=== PATIENT | female | born 1955 | race American Indian/Alaskan Native ===

== ENCOUNTER 2019-04-12 13:01 | Emergency (ER) | payer OTHER ==
[~2019-04-12] VITALS: Ht 149.9 cm; Wt 50.0 kg
[~2019-04-12 13:01] MED LIST: ALBU6.7H9 INH; ALPR0.5T10 PO; ESTR2TAB25 PO; LORA10TA7 PO; TRAZ-251 PO; ZOLP10TA PO
[2019-04-12] MEDS ORDERED: ipratropium/albuterol 3ml nebule NEB ONE (13:35)
[2019-04-12 13:43] LABS: BASOPHILS # (AUTO) 0.1 X10'3 (0-0.2); BASOPHILS % (AUTO) 0.9 % (0-1); EOSINOPHILS # (AUTO) 0.3 X10'3 (0-0.9); EOSINOPHILS % (AUTO) 4.2 % (0-6); HEMATOCRIT 44.1 % (35.0-45.0); HEMOGLOBIN 15.5 g/dl (12.0-16.0); LYMPHOCYTES # (AUTO) 2.7 X10'3 (1.1-4.8); LYMPHOCYTES % (AUTO) 32.3 % (21-51); MEAN CORPUSCULAR HEMOGLOBIN 33.3 PG (27.0-31.0); MEAN CORPUSCULAR HGB CONC 35.1 g/dL (33.0-36.5); MEAN CORPUSCULAR VOLUME 94.8 FL (78-98); MEAN PLATELET VOLUME 8.7 FL (7.4-10.4); MONOCYTES # (AUTO) 0.9 X10'3 (0-0.9); MONOCYTES % (AUTO) 11.2 % (2-12); NEUTROPHILS # (AUTO) 4.2 X10'3 (1.8-7.7); NEUTROPHILS % (AUTO) 51.4 % (42-75); PLATELET COUNT 199 X10'3 (140-440); RED BLOOD COUNT 4.65 X10'6 (4.20-5.60); RED CELL DISTRIBUTION WIDTH 13.1 % (11.5-14.5); WHITE BLOOD COUNT 8.3 X10'3 (4.5-11.0)
[2019-04-12 13:57] LABS: PARTIAL THROMBOPLASTIN TIME 28 SECONDS (22-32)
[2019-04-12 13:59] LABS: ALANINE AMINOTRANSFERASE 26 U/L (12-78); ALBUMIN 3.9 G/DL (3.4-5.0); ALKALINE PHOSPHATASE 101 IU/L (46-116); ANION GAP 6 (8-16); ASPARTATE AMINO TRANSFERASE 28 U/L (10-37); BILIRUBIN,TOTAL 0.5 MG/DL (0.1-1.0); BLOOD UREA NITROGEN 10 MG/DL (7-18); CALCIUM 9.4 MG/DL (8.5-10.1); CHLORIDE 103 MMOL/L (99-107); CREATININE 0.77 MG/DL (0.40-0.90); GLUCOSE 93 MG/DL (70-104); POTASSIUM 3.6 MMOL/L (3.5-5.1); SODIUM 138 MMOL/L (135-145); TOTAL CARBON DIOXIDE 29.5 MMOL/L (24-32); eGFR 75 ML/MIN
[2019-04-12 14:06] LABS: TROPONIN I < 0.04 NG/ML (0.0-0.05)
[2019-04-12] MEDS ORDERED: PRED20TA PO (14:49)
[2019-04-12] MEDS ORDERED: predniSONE 20 mg tablet PO ONE (14:50)
[2019-04-12] MEDS ORDERED: ALBU8HFA PO (14:55)
[2019-04-12 15:24] VITALS: BP 131/84
== END 2019-04-12 15:26 | disposition home or self-care (01) ==
LOC: ER 13:01
DX: J45.901 Unspecified asthma with (acute) exacerbation (principal); J06.9 Acute upper respiratory infection, unspecified; J44.9 Chronic obstructive pulmonary disease, unspecified; F41.9 Anxiety disorder, unspecified; F17.200 Nicotine dependence, unspecified, uncomplicated; Z79.899 Other long term (current) drug therapy
CPT/HCPCS: 36415; 71046; 80053; 83880; 84484; 85025; 85610; 85730; 93005; 94010; 94640; 94760; 99284; J7512

== ENCOUNTER 2019-08-29 04:28 | Emergency (ER) | payer MEDICARE, OTHER, MEDICAID ==
[~2019-08-29] VITALS: Ht 149.9 cm; Wt 49.8 kg
[~2019-08-29 04:28] MED LIST changes: +FLUT1DIS4 INH
[2019-08-29] MEDS ORDERED: ibuprofen 200mg tablet PO ONE (04:40)
[2019-08-29 05:05] LABS: BASOPHILS # (AUTO) 0.1 X10'3 (0-0.2); BASOPHILS % (AUTO) 0.8 % (0-1); EOSINOPHILS # (AUTO) 0.2 X10'3 (0-0.9); EOSINOPHILS % (AUTO) 1.7 % (0-6); HEMOGLOBIN 14.9 g/dl (12.0-16.0); LYMPHOCYTES # (AUTO) 2.5 X10'3 (1.1-4.8); LYMPHOCYTES % (AUTO) 18.2 % (21-51); MEAN CORPUSCULAR HEMOGLOBIN 32.6 PG (27.0-31.0); MEAN CORPUSCULAR HGB CONC 35.4 g/dL (33.0-36.5); MEAN CORPUSCULAR VOLUME 92.2 FL (78-98); MEAN PLATELET VOLUME 8.6 FL (7.4-10.4); MONOCYTES # (AUTO) 1.3 X10'3 (0-0.9); MONOCYTES % (AUTO) 9.2 % (2-12); NEUTROPHILS # (AUTO) 9.7 X10'3 (1.8-7.7); NEUTROPHILS % (AUTO) 70.1 % (42-75); PLATELET COUNT 242 X10'3 (140-440); RED BLOOD COUNT 4.56 X10'6 (4.20-5.60); WHITE BLOOD COUNT 13.8 X10'3 (4.5-11.0)
[2019-08-29 05:13] LABS: ALBUMIN 3.7 G/DL (3.4-5.0); ALBUMIN/GLOBULIN RATIO 0.9 (1.1-1.5); ALKALINE PHOSPHATASE 130 IU/L (46-116); ANION GAP 8 (8-16); ASPARTATE AMINO TRANSFERASE 28 U/L (10-37); BILIRUBIN,TOTAL 0.7 MG/DL (0.1-1.0); BLOOD UREA NITROGEN 11 MG/DL (7-18); BUN/CREATININE RATIO 14.3 (6.6-38.0); CALCIUM 8.7 MG/DL (8.5-10.1); CHLORIDE 101 MMOL/L (99-107); CREATININE 0.77 MG/DL (0.40-0.90); GLUCOSE 115 MG/DL (70-104); POTASSIUM 3.2 MMOL/L (3.5-5.1); SODIUM 137 MMOL/L (135-145); TOTAL CARBON DIOXIDE 27.6 MMOL/L (24-32); TOTAL PROTEIN 7.8 G/DL (6.4-8.2); eGFR 75 ML/MIN
[2019-08-29 05:16] LABS: ALANINE AMINOTRANSFERASE < 6 U/L (12-78)
[2019-08-29 05:34] VITALS: BP 111/75
== END 2019-08-29 05:35 | disposition home or self-care (01) ==
LOC: ER 04:29
DX: J44.1 Chronic obstructive pulmonary disease with (acute) exacerbation (principal); R07.89 Other chest pain; F41.9 Anxiety disorder, unspecified; F17.210 Nicotine dependence, cigarettes, uncomplicated; Z79.899 Other long term (current) drug therapy
CPT/HCPCS: 36415; 71045; 80053; 84484; 85025; 93005; 99285

== ENCOUNTER 2019-10-02 15:33 | Emergency (ER) | payer MEDICARE, OTHER, MEDICAID ==
[~2019-10-02] VITALS: Ht 149.9 cm; Wt 48.2 kg
[2019-10-02 16:02] VITALS: BP 124/64
--- NOTE | 2019-10-02 18:06 | NUR ---
NOT IN LOBBY X3
== END 2019-10-02 18:07 | disposition left against medical advice (07) ==
LOC: ER 15:33
DX: R07.89 Other chest pain (principal); Z53.21 Procedure and treatment not carried out due to patient leaving prior to being seen by health care provider
CPT/HCPCS: 71046

== ENCOUNTER 2021-11-02 15:38 | Inpatient (IN) | payer MEDICARE, OTHER, MEDICAID ==
[~2021-11-02] VITALS: Ht 144.8 cm; Wt 50.0 kg
[2021-11-02 17:31] LABS: BASOPHILS # (AUTO) 0.1 X10'3 (0-0.2); BASOPHILS % (AUTO) 1.2 % (0-1); EOSINOPHILS # (AUTO) 1.2 X10'3 (0-0.9); EOSINOPHILS % (AUTO) 11.9 % (0-6); HEMATOCRIT 43.5 % (35.0-45.0); HEMOGLOBIN 15.4 g/dl (12.0-16.0); LYMPHOCYTES # (AUTO) 2.9 X10'3 (1.1-4.8); LYMPHOCYTES % (AUTO) 28.4 % (21-51); MEAN CORPUSCULAR HEMOGLOBIN 32.4 PG (27.0-31.0); MEAN CORPUSCULAR HGB CONC 35.5 g/dL (33.0-36.5); MEAN CORPUSCULAR VOLUME 91.4 FL (78-98); MEAN PLATELET VOLUME 8.8 FL (7.4-10.4); MONOCYTES # (AUTO) 0.8 X10'3 (0-0.9); MONOCYTES % (AUTO) 8.1 % (2-12); NEUTROPHILS # (AUTO) 5.1 X10'3 (1.8-7.7); NEUTROPHILS % (AUTO) 50.4 % (42-75); PLATELET COUNT 323 X10'3 (140-440); RED BLOOD COUNT 4.76 X10'6 (4.20-5.60); RED CELL DISTRIBUTION WIDTH 13.4 % (11.5-14.5); WHITE BLOOD COUNT 10.1 X10'3 (4.5-11.0)
[2021-11-02 17:39] LABS: ALANINE AMINOTRANSFERASE 24 U/L (12-78); ALBUMIN 3.9 G/DL (3.4-5.0); ALKALINE PHOSPHATASE 94 IU/L (46-116); ANION GAP 9 (8-16); ASPARTATE AMINO TRANSFERASE 21 U/L (10-37); BILIRUBIN,TOTAL 0.6 MG/DL (0.1-1.0); BLOOD UREA NITROGEN 12 MG/DL (7-18); BUN/CREATININE RATIO 12.5 (6.6-38.0); CALCIUM 8.8 MG/DL (8.5-10.1); CHLORIDE 104 MMOL/L (99-107); CREATININE 0.96 MG/DL (0.40-0.90); GLUCOSE 93 MG/DL (70-104); POTASSIUM 4.1 MMOL/L (3.5-5.1); SODIUM 140 MMOL/L (135-145); TOTAL CARBON DIOXIDE 26.7 MMOL/L (24-32); eGFR 58 ML/MIN
[2021-11-02] MEDS ORDERED: albuterol 2.5 MG/3 ML nebule NEB ONE (19:00)
[2021-11-02] MEDS ORDERED: ipratropium 0.5 MG/2.5ML nebule IH ONE (19:00)
[2021-11-02] MEDS ORDERED: albuterol 2.5 MG/3 ML nebule CONTNEB PRN ×2 (19:10→23:20)
[2021-11-02] MEDS ORDERED: predniSONE 20 mg tablet PO ONE (19:10)
[2021-11-02] MEDS: ipratropium/albuterol 3ml nebule NEB PRN (19:14)
[2021-11-02] MEDS ORDERED: ipratropium/albuterol 3ml nebule ONE (19:20)
[2021-11-03] MEDS ORDERED: acetaminophen 325mg tablet PO PRN ×2 (02:05)
[2021-11-03] MEDS ORDERED: mag hydrox/Alum hydrox/simeth 30ml oral suspension PO PRN (02:05)
[2021-11-03] MEDS ORDERED: magnesium hydroxide 30ml (MOM) UD suspension PO PRN (02:05)
[2021-11-03] MEDS: normal saline 1000ml 1,000 ML IV SCH (02:05)
[2021-11-03] MEDS ORDERED: bisacodyl 10mg suppository rectal RC PRN (02:05)
[2021-11-03] MEDS ORDERED: ondansetron/PF 4mg/2ml inj IV PRN (02:05)
[2021-11-03] MEDS ORDERED: diphenhydrAMINE 50 mg/ml inj IV PRN (02:05)
[2021-11-03] MEDS ORDERED: HYDROcodone/acetaminophen 5mg/325mg tablet PO PRN (02:05)
[2021-11-03] MEDS ORDERED: diphenhydrAMINE 25mg capsule PO PRN (02:05)
[2021-11-03] MEDS ORDERED: acetaminophen 650mg rectal suppository RC PRN (02:05)
[2021-11-03] MEDS ORDERED: ondansetron 4mg rapidly disintigrating tab PO PRN (02:05)
[2021-11-03] MEDS ORDERED: morphine 2 MG/ML inj. syringe IV PRN ×2 (02:05)
[2021-11-03] MEDS ORDERED: ipratropium/albuterol 3ml nebule NEB PRN (02:05)
[2021-11-03 02:42] LABS: HEMOGLOBIN A1C 5.5 % (4.5-6.2)
[2021-11-03 02:47] LABS: MAGNESIUM 2.2 MG/DL (1.5-2.4); PHOSPHORUS 5.8 MG/DL (2.3-4.5)
[2021-11-03] MEDS ORDERED: azithromycin/NS 500mg/250ml 250 ML IV SCH (04:00)
[2021-11-03] MEDS ORDERED: LEVO25TA7 (05:17)
[2021-11-03] MEDS ORDERED: ALPR-163 PO (05:17)
[2021-11-03] MEDS ORDERED: BENZ-49 (05:17)
[2021-11-03] MEDS ORDERED: ADV50250 INH (05:17)
[2021-11-03] MEDS ORDERED: ATRIN INH (05:17)
[2021-11-03] MEDS ORDERED: IPRA3AMP31 NEB (05:17)
[2021-11-03] MEDS ORDERED: MONT-40 PO (05:17)
[2021-11-03] MEDS ORDERED: CHOL20003 (05:17)
[2021-11-03] MEDS ORDERED: ALBU8HFA PO (05:17)
[2021-11-03] MEDS: cefTRIAXone 1g/NS 100ml IVPB 100 ML IV SCH (05:27)
[2021-11-03] MEDS ORDERED: ALPRAZolam 0.5mg tablet PO PRN (07:25)
[2021-11-03] MEDS ORDERED: methylPREDNISolone sod succ 125mg/2ml vial IV SCH (08:00)
[2021-11-03 08:36] LABS: APTT 33 SECONDS (22-32)
[2021-11-03] MEDS: loratadine 10mg tablet PO SCH (08:42)
[2021-11-03] MEDS: montelukast 10mg tablet PO SCH (08:42)
[2021-11-03] MEDS: benzonatate 100mg capsule PO SCH ×3 (08:42→20:42)
[2021-11-03] MEDS: levoTHYROXINE 25mcg tablet PO SCH (08:42)
[2021-11-03] MEDS: cholecalciferol (vitamin D3) 1,000 unit (25mcg) tablet PO SCH (08:42)
[2021-11-03] MEDS: pantoprazole 40mg Tablet.DR PO SCH (08:42)
[2021-11-03] MEDS: heparin, porcine 5000 units/ml vial SQ SCH ×2 (08:43→20:43)
[2021-11-03] MEDS: docusate sod 100mg capsule PO SCH ×2 (08:43→20:42)
[2021-11-03] MEDS: estradiol 1mg tablet PO SCH (08:45)
--- NOTE | 2021-11-03 10:56 | NUR ---
PT IS REQUESTING A BREATHING TX, PT HAS AUDIBLE WHEEZES. RT PAGED
[2021-11-03] MEDS: ipratropium/albuterol 3ml nebule NEB PRN (11:21)
--- NOTE | 2021-11-03 13:03 | NUR ---
02 titrated down to 1 ltr. spo2 95%
[2021-11-03] MEDS ORDERED: ipratropium/albuterol 3ml nebule NEB SCH (15:05)
[2021-11-03] MEDS ORDERED: iohexol 350MG/ML 100ml bottle IV ONE (15:13)
[2021-11-03 15:25] VITALS: BP 141/74
--- NOTE | 2021-11-03 15:30 | NUR ---
Pt taken to CT
[2021-11-03 18:00] VITALS: BP 146/77
--- NOTE | 2021-11-03 18:57 | NUR ---
Pt has been able to make her needs be known thoughout shift. Call light within reach at all times. [facility] shift nurseNeris NOC nurse to resume care of patient. All questions, comments, concerns answered at this time.
[2021-11-03] MEDS: budesonide 0.5mg/2ml UD nebule IH SCH (19:48)
[2021-11-03] MEDS: ipratropium/albuterol 3ml nebule NEB SCH (21:00)
[2021-11-03] MEDS ORDERED: temazepam 15mg capsule PO PRN (21:00)
[2021-11-03] MEDS: methylPREDNISolone sod succ 125mg/2ml vial IV SCH (21:02)
[2021-11-03 22:00] VITALS: BP 124/61
[2021-11-04 02:00] VITALS: BP 117/57
[2021-11-04] MEDS: normal saline 1000ml 1,000 ML IV SCH (03:08)
--- NOTE | 2021-11-04 03:37 | NUR ---
HAVE REVIEWED ASSMT DONE BY ASHLY LONG LVN AND AGREE WITH PATIENTS ASSMT.
--- NOTE | 2021-11-04 06:38 | NUR ---
Problems reprioritized. Patient report given, questions answered & plan of care reviewed with matthew vang.
[2021-11-04 07:01] LABS: BASOPHILS % (AUTO) 0.1 % (0-1); EOSINOPHILS % (AUTO) 0 % (0-6); HEMATOCRIT 38.8 % (35.0-45.0); LYMPHOCYTES # (AUTO) 1.1 X10'3 (1.1-4.8); LYMPHOCYTES % (AUTO) 5.6 % (21-51); MEAN CORPUSCULAR HEMOGLOBIN 30.7 PG (27.0-31.0); MEAN CORPUSCULAR HGB CONC 33.6 g/dL (33.0-36.5); MEAN CORPUSCULAR VOLUME 91.5 FL (78-98); MEAN PLATELET VOLUME 9.5 FL (7.4-10.4); MONOCYTES # (AUTO) 0.3 X10'3 (0-0.9); MONOCYTES % (AUTO) 1.8 % (2-12); NEUTROPHILS # (AUTO) 17.6 X10'3 (1.8-7.7); NEUTROPHILS % (AUTO) 92.5 % (42-75); PLATELET COUNT 279 X10'3 (140-440); RED BLOOD COUNT 4.24 X10'6 (4.20-5.60); RED CELL DISTRIBUTION WIDTH 13.7 % (11.5-14.5); WHITE BLOOD COUNT 19.1 X10'3 (4.5-11.0)
[2021-11-04 07:22] LABS: ALANINE AMINOTRANSFERASE 22 U/L (12-78); ALBUMIN 3.5 G/DL (3.4-5.0); ALKALINE PHOSPHATASE 73 IU/L (46-116); ANION GAP 8 (8-16); ASPARTATE AMINO TRANSFERASE 25 U/L (10-37); BILIRUBIN,TOTAL 0.4 MG/DL (0.1-1.0); BLOOD UREA NITROGEN 14 MG/DL (7-18); BUN/CREATININE RATIO 17.7 (6.6-38.0); CALCIUM 8.8 MG/DL (8.5-10.1); CHLORIDE 108 MMOL/L (99-107); CHOL/HDL RATIO 2.3 (0.00-4.99); CHOLESTEROL 191 MG/DL (0-200); CREATININE 0.79 MG/DL (0.40-0.90); GLUCOSE 149 MG/DL (70-104); HDL CHOLESTEROL 83 MG/DL (35-60); LDL CHOLESTEROL 84 MG/DL (50-100); POTASSIUM 4.1 MMOL/L (3.5-5.1); SODIUM 143 MMOL/L (135-145); TOTAL CARBON DIOXIDE 26.8 MMOL/L (24-32); TRIGLYCERIDES 80 MG/DL (20-135); eGFR 73 ML/MIN
[2021-11-04] MEDS: heparin, porcine 5000 units/ml vial SQ SCH (08:00)
[2021-11-04] MEDS: methylPREDNISolone sod succ 125mg/2ml vial IV SCH (08:00)
[2021-11-04] MEDS: benzonatate 100mg capsule PO SCH (08:00)
--- NOTE | 2021-11-04 08:14 | NUR ---
PAGER ID: [phone] MESSAGE: Isac mcmahon [id number] has a BG of [phone] FYI will treat per protocol unless otherwise prescribed. Sanjuana CHANG ext [phone] Addendum: 11/04/21 at 0815 by Sanjuana Donaldson RN Entered note on wrong patient will add to correct patients chart
[2021-11-04] MEDS: ipratropium/albuterol 3ml nebule NEB SCH (09:34)
[2021-11-04] MEDS: budesonide 0.5mg/2ml UD nebule IH SCH (09:34)
[2021-11-04] MEDS: cefTRIAXone 1g/NS 100ml IVPB 100 ML IV SCH (09:39)
[2021-11-04] MEDS: docusate sod 100mg capsule PO SCH (09:39)
[2021-11-04] MEDS: estradiol 1mg tablet PO SCH (09:39)
[2021-11-04] MEDS: loratadine 10mg tablet PO SCH (09:40)
[2021-11-04] MEDS: cholecalciferol (vitamin D3) 1,000 unit (25mcg) tablet PO SCH (09:40)
[2021-11-04] MEDS: pantoprazole 40mg Tablet.DR PO SCH (09:40)
[2021-11-04] MEDS: levoTHYROXINE 25mcg tablet PO SCH (09:40)
[2021-11-04] MEDS: montelukast 10mg tablet PO SCH (09:40)
[2021-11-04] MEDS ORDERED: AZIT500T9 PO (10:39)
[2021-11-04] MEDS ORDERED: PRED20TA PO (10:39)
--- NOTE | 2021-11-04 14:16 | NUR ---
IV removed went over discharge packet answered all questions. patient discharged
== END 2021-11-04 13:50 | disposition home or self-care (01) | DRG 189 ==
LOC: ER 15:39 → ED HOLD 23:50 → PCU 3S 11-03 15:09
PROVIDERS: ADMIT Family Medicine; ATTEND Family Medicine
PROC: B32T1ZZ Computerized Tomography (CT Scan) of Left Pulmonary Artery using Low Osmolar Contrast (ICD-10-PCS; principal; 2021-11-03)
PROC: B3201ZZ Computerized Tomography (CT Scan) of Thoracic Aorta using Low Osmolar Contrast (ICD-10-PCS; 2021-11-03)
PROC: B32S1ZZ Computerized Tomography (CT Scan) of Right Pulmonary Artery using Low Osmolar Contrast (ICD-10-PCS; 2021-11-03)
DX: J96.01 Acute respiratory failure with hypoxia (principal); J44.1 Chronic obstructive pulmonary disease with (acute) exacerbation; N17.9 Acute kidney failure, unspecified; N18.9 Chronic kidney disease, unspecified; R00.0 Tachycardia, unspecified; J40 Bronchitis, not specified as acute or chronic; F41.9 Anxiety disorder, unspecified; D72.823 Leukemoid reaction; T38.0X5A Adverse effect of glucocorticoids and synthetic analogues, initial encounter; Y92.230 Patient room in hospital as the place of occurrence of the external cause; Z79.51 Long term (current) use of inhaled steroids; Z87.891 Personal history of nicotine dependence; Z82.5 Family history of asthma and other chronic lower respiratory diseases; Z82.3 Family history of stroke; Z83.3 Family history of diabetes mellitus; Z84.89 Family history of other specified conditions; Z79.899 Other long term (current) drug therapy
CPT/HCPCS: 36415; 71045; 71275; 80053; 80061; 83036; 83735; 83880; 84100; 84484; 85025; 85610; 85730; 87081; 92508; 92616; 93005; 94640; 94667; 94668; 94760; 97116; 97161; 97530; 99291; A7015; G0378; J0456; J0696; J1644; J2930; J3490; J7030; J7512; Q9967

== ENCOUNTER 2023-04-15 01:31 | Emergency (ER) | payer MEDICARE, OTHER, MEDICAID ==
[~2023-04-15] VITALS: Ht 149.9 cm; Wt 48.2 kg
[~2023-04-15 01:31] MED LIST changes: +ADV50250 PO; +ALBU18HF2 PO; -ALBU6.7H9 INH; +ALPR-163 PO; -ALPR0.5T10 PO; +ATRIN INH; +CHOL20003 PO; -FLUT1DIS4 INH; +IPRA3AMP31 NEB; +LEVO25TA7; +MONT-40 PO; -TRAZ-251 PO; -ZOLP10TA PO
--- NOTE | 2023-04-15 01:46 | NUR ---
PT REPORTS HEAT LEFT ARM WITH NUMBNESS
[2023-04-15] MEDS ORDERED: triamcinolone acetonide 40mg/ml inj IJ ONE (02:40)
[2023-04-15] MEDS ORDERED: BUPIVAcaine/PF 2.5mg/ml (0.25%) 10ml vial IJ ONE (02:50)
[2023-04-15] MEDS ORDERED: acetaminophen 325mg tablet PO ONE (04:10)
[2023-04-15] MEDS ORDERED: HYDR-3965 PO (04:19)
[2023-04-15 04:41] VITALS: BP 172/92; PULSE 69; RESP 16; TEMP 98.1; O2SAT 94
== END 2023-04-15 04:45 | disposition home or self-care (01) ==
LOC: ER 01:32
DX: M54.10 Radiculopathy, site unspecified (principal); M25.512 Pain in left shoulder
CPT/HCPCS: 20552; 71045; 93005; 99284

== ENCOUNTER 2023-07-21 09:03 | Emergency (ER) | payer MEDICARE, OTHER, MEDICAID ==
[~2023-07-21] VITALS: Ht 142.2 cm; Wt 47.0 kg
[~2023-07-21 09:03] MED LIST changes: -ALPR-163 PO; +LACT1CAP55 PO
[2023-07-21 10:24] LABS: BASOPHILS # (AUTO) 0.1 X10'3 (0-0.2); HEMOGLOBIN 15.9 g/dl (12.0-16.0); LYMPHOCYTES # (AUTO) 1.5 X10'3 (1.1-4.8); MEAN CORPUSCULAR HEMOGLOBIN 32.6 PG (27.0-31.0); MONOCYTES # (AUTO) 0.7 X10'3 (0-0.9); MONOCYTES % (AUTO) 8.1 % (2-12); WHITE BLOOD COUNT 8.6 X10'3 (4.5-11.0)
[2023-07-21 10:25] LABS: BASOPHILS % (AUTO) 1.3 % (0-1); EOSINOPHILS # (AUTO) 0.4 X10'3 (0-0.9); EOSINOPHILS % (AUTO) 4.8 % (0-6); HEMATOCRIT 46.2 % (35.0-45.0); LYMPHOCYTES % (AUTO) 17.2 % (21-51); MEAN CORPUSCULAR HGB CONC 34.5 g/dL (33.0-36.5); MEAN CORPUSCULAR VOLUME 94.5 FL (78-98); MEAN PLATELET VOLUME 9.1 FL (7.4-10.4); NEUTROPHILS # (AUTO) 5.9 X10'3 (1.8-7.7); NEUTROPHILS % (AUTO) 68.6 % (42-75); PLATELET COUNT 304 X10'3 (140-440); RED CELL DISTRIBUTION WIDTH 13.4 % (11.5-14.5)
[2023-07-21 10:36] LABS: ALANINE AMINOTRANSFERASE 20 U/L (12-78); ALBUMIN 4.3 G/DL (3.4-5.0); ALBUMIN/GLOBULIN RATIO 1.2 (1.1-1.5); ALKALINE PHOSPHATASE 103 IU/L (46-116); ANION GAP 10 (8-16); ASPARTATE AMINO TRANSFERASE 23 U/L (10-37); BILIRUBIN,TOTAL 0.9 MG/DL (0.1-1.0); BLOOD UREA NITROGEN 6 MG/DL (7-18); BUN/CREATININE RATIO 8.6 (10.0-20.0); CALCIUM 8.8 MG/DL (8.5-10.1); CHLORIDE 105 MMOL/L (99-107); GLUCOSE 102 MG/DL (70-104); POTASSIUM 3.8 MMOL/L (3.5-5.1); PRO BRAIN NATRIURETIC PEPTIDE 407 PG/ML (0-125); SODIUM 142 MMOL/L (135-145); TOTAL CARBON DIOXIDE 26.6 MMOL/L (24-32); eCRCL 43 ML/MIN; eGFR 83 ML/MIN
[2023-07-21] MEDS: ipratropium/albuterol 3ml nebule NEB ONE (10:50)
[2023-07-21 10:52] VITALS: PULSE 99; RESP 22; O2SAT 96
[2023-07-21 10:58] VITALS: PULSE 99; RESP 22; O2SAT 94
[2023-07-21] MEDS ORDERED: ALBU2.5V10 NEB (11:24)
[2023-07-21] MEDS ORDERED: PRED20TA PO (11:24)
[2023-07-21 12:02] VITALS: BP 113/84; PULSE 90; RESP 20; TEMP 97.6; O2SAT 90
== END 2023-07-21 12:05 | disposition home or self-care (01) ==
LOC: ER 09:03
DX: J44.1 Chronic obstructive pulmonary disease with (acute) exacerbation (principal); F41.9 Anxiety disorder, unspecified; Z90.710 Acquired absence of both cervix and uterus; Z72.89 Other problems related to lifestyle; Z88.8 Allergy status to other drugs, medicaments and biological substances; Z79.899 Other long term (current) drug therapy
CPT/HCPCS: 36415; 71045; 80053; 83880; 84484; 85025; 93005; 94640; 94760; 99285

== ENCOUNTER 2024-02-24 09:18 | Emergency (ER) | payer MEDICARE, OTHER, MEDICAID ==
[~2024-02-24] VITALS: Ht 147.3 cm; Wt 45.6 kg
[2024-02-24] MEDS ORDERED: PRED20TA PO (12:12)
[2024-02-24] MEDS ORDERED: LIDO700A32 TOP (12:12)
[2024-02-24] MEDS ORDERED: CYCL-1 PO (12:12)
[2024-02-24] MEDS: HYDROcodone/acetaminophen 5mg/325mg tablet PO ONE (12:20)
[2024-02-24] MEDS: ondansetron 4mg rapidly disintigrating tab PO ONE (12:21)
[2024-02-24] MEDS: dexamethasone sod phosphate 10mg/ml inj IM STA (12:22)
[2024-02-24] MEDS: ketorolac trometh 30MG/ML vial 30 MG/ML VIAL IM ONE (12:22)
[2024-02-24] MEDS: LIDOcaine 5% patch TP SCH (12:23)
[2024-02-24 13:12] VITALS: BP 177/94; PULSE 70; RESP 16; TEMP 97.7; O2SAT 97
== END 2024-02-24 13:16 | disposition home or self-care (01) ==
LOC: ER 09:19
DX: S16.1XXA Strain of muscle, fascia and tendon at neck level, initial encounter (principal); J44.9 Chronic obstructive pulmonary disease, unspecified; F41.9 Anxiety disorder, unspecified; Z90.710 Acquired absence of both cervix and uterus; I25.10 Atherosclerotic heart disease of native coronary artery without angina pectoris; I50.9 Heart failure, unspecified; Z79.899 Other long term (current) drug therapy; X58.XXXA Exposure to other specified factors, initial encounter; Y93.89 Activity, other specified; Y92.89 Other specified places as the place of occurrence of the external cause; Y99.8 Other external cause status
CPT/HCPCS: 72040; 96372; 99284; J1100; J1885